=== PATIENT | male | born 1980 | race African-American/Black ===

== ENCOUNTER 2016-12-19 17:24 | Emergency (ER) | payer SELFPAY ==
[~2016-12-19] VITALS: Ht 185.4 cm; Wt 122.5 kg
[2016-12-19 17:31] VITALS: BP 152/87
--- NOTE | 2016-12-19 18:04 | PHYS DOC ---
Past Medical History Past Medical History: No Pertinent History Past Surgical History: No Surgical History Alcohol Use: None Drug Use: None Adult General Chief Complaint Chief Complaint: [facility] HPI Patient is a 36 year old male presents emergency department stating that he is having right shoulder pain and discomfort. He denies any trauma or injury. He states that he is not sure if he lifted something and injured the shoulder. He states that he has increased pain when he raises his arm above his head. He states he's taken one dose of Aleve. He states the pain started on Tuesday evening. He states that he woke up Tuesday with no pain and discomfort. Patient denies any numbness or tingling down his extremities. He has equal director life sales bilaterally. Peripheral pulses 2+ cap refill brisk less than 2 seconds. Review of Systems Review of Systems Constitutional: Denies fever or chills [] Eyes: Denies change in visual acuity, redness, or eye pain [] HENT: Denies nasal congestion or sore throat [] Respiratory: Denies cough or shortness of breath [] Cardiovascular: No additional information not addressed in HPI [] GI: Denies abdominal pain, nausea, vomiting, bloody stools or diarrhea [] : Denies dysuria or hematuria [] Musculoskeletal: Denies back pain. C/o right shoulder pain Integument: Denies rash or skin lesions [] Neurologic: Denies headache, focal weakness or sensory changes [] Endocrine: Denies polyuria or polydipsia [] Allergies Allergies Allergies Coded Allergies Type Severity Reaction Last Updated Verified No Known Drug Allergies 12/19/16 No Physical Exam Physical Exam Constitutional: Well developed, well nourished, no acute distress, non-toxic appearance. [] HENT: Normocephalic, atraumatic, bilateral external ears normal, oropharynx moist, no oral exudates, nose normal. [] Eyes: PERRLA, EOMI, conjunctiva normal, no discharge. [] Neck: Normal range of motion, no tenderness, supple, no stridor. [] Cardiovascular:Heart rate regular rhythm, no murmur [] Lungs & Thorax: Bilateral breath sounds clear to auscultation [] Skin: Warm, dry, no erythema, no rash. [] Back: No tenderness Extremities: Right shoulder tenderness, no cyanosis, no clubbing, ROM intact, no edema. Peripheral pulses 2+ cap refill brisk less than 2 seconds. Patient with good director life sales noted to the right hand as he is able to hold his cell phone. Neurologic: Alert and oriented X 3, normal motor function, normal sensory function, no focal deficits noted. [] Psychologic: Affect normal, judgement normal, mood normal. [] Current Patient Data Vital Signs Vital Signs Date Time Temp Pulse Resp B/P (MAP) Pulse Ox O2 Delivery O2 Flow Rate FiO2 12/19/16 17:31 98.1 83 20 98 Room Air 98.1 EKG EKG [] Radiology/Procedures Radiology/Procedures [] Course & Med Decision Making Course & Med Decision Making Pertinent Labs and Imaging studies reviewed. (See chart for details) No x-rays are needed as this patient has no injury or trauma. He will be placed in a sling with recommendations to take his arm out of the sling 3-4 times a day and do active range of motion. Ice packs on 20 minutes off 20 minutes several times a day. Aleve for pain and discomfort as instructed by distribution coordinator. Patient will be provided with orthopedic name and number to follow up with. Signs symptoms to return back to emergency department as been provided. [] Dragon Disclaimer Dragon Disclaimer This electronic medical record was generated, in whole or in part, using a voice recognition dictation system. Departure Departure Impression: Primary Impression: Right shoulder pain Disposition: 01 HOME, SELF-CARE Condition: STABLE Referrals: NO PCP (PCP) JERRY GALLARDO MD Patient Instructions: Arm Sling Use-Brief, Shoulder Pain, [id number] Additional Instructions: Activity as tolerated. Wear the sling for comfort. Take your arm out of the sling 3-4 times a day and do active range of motion to prevent her shoulder from freezing up. Ice packs on 20 minutes off 20 minutes several times a day. Elevation as much as possible. Follow-up with orthopedic in the next week. Return back to emergency prior signs symptoms of become worse. SHELLY NUNN APRN December 19, 2016 18:03
== END 2016-12-19 18:09 | disposition home or self-care (01) ==
LOC: ER 17:41
DX: M25.511 Pain in right shoulder (principal)
CPT/HCPCS: 99282